=== PATIENT | male | born 1945 | race Caucasian/White ===

== ENCOUNTER 2016-11-02 14:02 | Inpatient (IN) | payer MEDICARE, OTHER ==
[~2016-11-02] VITALS: Ht 165.1 cm; Wt 99.8 kg
[~2016-11-02 14:02] MED LIST changes: +ACETAMINOPHEN 325 MG TAB PO PRN; +ACETAMINOPHEN 500 MG TAB PO ONE; +ALLOPURINOL 300 MG TAB PO SCH; -LIDOCAINE 1% (MDV) 20 ML INJ SC ONE; +NS + KCL 20 MEQ 1,000 ML IV SCH; -SOD CHLORIDE 0.9% 100 ML ONE
[2016-11-03] VITALS (7 sets, daily range): BP systolic 140–162; BP diastolic 78–90; PULSE 67–83; RESP 18; Ht 165.1 cm; Wt 99.8 kg
[2016-11-03] MEDS ORDERED: METHYLPREDNISOLONE 125 MG INJ IV PRN ×2 (15:00→16:00)
[2016-11-03] MEDS ORDERED: EPINEPHrine 1 MG INJ SC PRN ×2 (15:00→16:00)
[2016-11-03] MEDS ORDERED: DIPHENHYDRAMINE 50 MG CAP PO ONE (15:00)
[2016-11-03] MEDS ORDERED: traMADol 50 MG TAB PO PRN ×2 (15:00→19:00)
[2016-11-03] MEDS ORDERED: ACETAMINOPHEN 325 MG TAB PO PRN (15:00)
[2016-11-03] MEDS ORDERED: DIPHENHYDRAMINE 50 MG INJ IV PRN ×2 (15:00→16:00)
[2016-11-03] MEDS ORDERED: MEPERIDINE 25 MG INJ IV PRN ×2 (15:00→16:00)
[2016-11-03] MEDS ORDERED: ZOLPIDEM 5 MG TAB PO PRN ×2 (15:00→19:00)
[2016-11-03] MEDS ORDERED: SOD CHLORIDE 0.9% IV ONE (16:00)
[2016-11-03] MEDS ORDERED: ACETAMINOPHEN 500 MG TAB PO ONE (16:00)
[2016-11-03] MEDS ORDERED: ACETAMINOPHEN 500 MG TAB PO SCH (16:00)
[2016-11-03] MEDS ORDERED: RITUXIMAB IV ONE (16:00)
[2016-11-03] MEDS ORDERED: DIPHENHYDRAMINE 50 MG CAP PO SCH (16:00)
[2016-11-03] MEDS ORDERED: RITUXIMAB IV SCH ×3 (17:00→18:00)
[2016-11-03] MEDS ORDERED: SOD CHLORIDE 0.9% IV SCH ×5 (17:00→22:00)
--- NOTE | 2016-11-03 17:05 | QN ---
Documentation Comment Pt electively admitted for chemotherapy cycle #1. See Dr. Armas's note. Rituxan due to start this evening as soon as supplied by Pharmacy. JONATHON BOGGS MD Nov 03, 2016 17:05
[2016-11-03] MEDS: NS + KCL 20 MEQ 1,000 ML IV SCH (19:09)
[2016-11-03] MEDS ORDERED: BENDAMUSTINE HCL IV SCH ×2 (20:00→22:00)
[2016-11-03] MEDS ORDERED: DOXAZOSIN 2 MG TAB PO SCH (21:00)
[2016-11-03 22:07] LABS: ADD UMIC YES; URINE BILIRUBIN (Dip) NEGATIVE (NEGATIVE); URINE BLOOD (Dip) TRACE (NEGATIVE); URINE COLOR YELLOW (YELLOW); URINE GLUCOSE (Dip) NEGATIVE (NEGATIVE); URINE KETONES (Dip) NEGATIVE (NEGATIVE); URINE LEUKOCYTE ESTERASE (Dip) NEGATIVE (NEGATIVE); URINE NITRITE (Dip) NEGATIVE (NEGATIVE); URINE TOTAL PROTEIN (Dip) 2+ (NEGATIVE); URINE UROBILINOGEN (Dip) 1.0 E.U./dL (0.1-1.0)
[2016-11-03 22:22] LABS: MUCUS,URINE MANY; TRANSITIONAL EPI CELLS,URINE FEW; URINE RBCS 0-2 /HPF (0)
--- NOTE | 2016-11-03 23:51 | HP ---
DATE OF ADMISSION: 11/03/2016 CHIEF COMPLAINT: Non-Hodgkin lymphoma. HISTORY OF PRESENT ILLNESS: Mr. Ibarra is a 71-year-old male who has a long history of lower sophie k pain. This in the past has required surgery. In the past year, the pain has worsened and has bee n associated with some radicular symptoms in both lower extremities. The patient did recently have a repeat MRI that showed a space-occupying mass in the S1 area extendi ng into the sacral canal causing severe stenosis. There was a soft-tissue mass as well. 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 A PET scan was done at [facility] as well. This demonstrated hypermetabolic lesions corresponding with the findings on the MRI. There were also multiple enlarged hypermetabolic bilateral inguinal nodes and focal uptake within the spleen. There were additional skeletal foci of hypermetabolism in the left clavicle, right scapula and right proximal humerus. The patient is now being admitted to [facility] for chemotherapy due to the risk o f tumor lysis syndrome as well as the patient's increasing lower extremity weakness and concern abou t possible further spinal cord compression and neurologic symptoms. PAST HISTORY: Includes also atrial fibrillation. The patient has had bilateral lower extremity crystal p vein thrombosis as well as a pulmonary embolism. He as a result of the deep vein thrombosis has v enous insufficiency which is chronic in the lower extremities. He also has idiopathic scoliosis. PAST SURGICAL HISTORY: Surgeries in the past have included a lumbar laminectomy, a hemorrhoidectomy and biopsy of the lumbar spine lesion. MEDICATIONS PRIOR TO ADMISSION: Include: 1. Allopurinol 100 mg daily. 2. Cardura 2 mg daily. 3. Warfarin 2 mg daily. 4. Furosemide 40 mg daily. 5. Probiotic. ALLERGIES: THE PATIENT STATES HE IS ALLERGIC TO: 1. CIPRO. 2. CODEINE. 3. IODINE. SOCIAL HISTORY: The patient was born in [place], [place]. He may have been exposed to asbestos as a child but has had no other known exposures to industrial toxins or ionizing radiation. The pat ient has never smoked, does not use alcohol. 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 FAMILY HISTORY: Remarkable in that the patient's mother did have a history of DVT and pulmonary emb olism. She at 92 years of age. Father had prostate carcinoma, heart disease and at 88 ye ars of age. He has 1 sister who is alive and well at 70. She has, however, had 2 spontaneous abort ions. There is also a niece who is alive and well at 35 and also has had a spontaneous . REVIEW OF SYSTEMS: GENERAL: The patient has no complaints of fevers or chills. No anorexia, no weight loss or weight gain. SKIN: No rashes, no ecchymosis or petechiae. HEENT: No complaints of headaches, dizziness, diplopia. CARDIORESPIRATORY: No complaints of chest pain, orthopnea or PND. GASTROINTESTINAL: No nausea, vomiting, constipation, diarrhea or hematochezia. The patient does caldwell ve some complaint of pain in the anorectal area on bowel movements. MUSCULOSKELETAL: The patient does have neck and low back pain. He does have radicular symptoms rad iating to both lower extremities. PHYSICAL EXAMINATION: GENERAL: At this time reveals a well-developed, well-nourished male who is in no acute distress. VITAL SIGNS: Temperature 98.4 orally, pulse 74 per minute and irregular, respirations 18 per minute , blood pressure 140/80, pulse oximetry is 98% on room air. SKIN: No ecchymosis. No petechiae, rashes. HEENT: Normocephalic. No evidence of trauma. The pupils equal, round, react to light and accommod ation. Sclerae nonicteric. Oral mucosa is moist without lesions. Tongue is well papillated. Ther e is no gingival hyperplasia, no hypertrophy of Waldeyer ring, no mucosal telangiectasias. NECK: Held in a somewhat flexed position with decreased rotational movement and marked decrease in extension. There is no thyroid enlargement. No carotid bruits. CHEST: Clear to auscultation, percussion. No rhonchi, wheezes, rales or rubs. No pain on percussi on of the spine, sternum, clavicles or ribs. There is some scoliosis of the spine. BREASTS: No gynecomastia. HEART: Regular sinus rhythm. No S3, S4 or murmurs. No rubs. NODES: No palpable adenopathy in any lymph node-bearing area. ABDOMEN: Obese but soft. There are no masses or ascites. Bowel sounds are active. EXTREMITIES: Bilateral chronic lower extremity edema with stasis changes. There is pedal and preti bial edema. No palpable cords or Homans sign. NEUROLOGIC: No focal neurologic abnormalities. IMPRESSION: 1. Grade II follicular non-Hodgkin lymphoma. 2. Lower back pain with radicular symptoms related to #1. 3. History of atrial fibrillation. 4. History of deep venous thrombosis and pulmonary embolism. 5. Chronic lower extremity venous insufficiency. PLAN: The patient is to be admitted to [address] [place] [address]. A PICC line will be placed for the administration of chemotherapy. The patient is to receive rituximab 375 mg/meter sq uared on day 1 and bendamustine 90 mg/meter squared on days 1 and 2. This will be repeated every 28 days. The patient will be hydrated and given premedication in regard to a possible allergic reaction to ri tuximab. The patient is already on allopurinol. As noted, the patient does have a history of deep vein thrombosis and pulmonary embolism. The patie nt has been chronically on warfarin. The patient's mother did have deep vein thrombosis and pulmonary embolism. His sister has not had a ny thromboembolic episodes but has had 2 spontaneous abortions. The sister's daughter has also had at least 1 spontaneous . With this history, I do feel the patient should have some evaluation to rule out the possibility of an inherited "thrombophilia." Dictated By: STEVENSON ROCHA MD SR/NTS Conf#: [id number] DID#: [id number] CC: REY WALLACE MD;*EndCC*
[2016-11-04] VITALS (8 sets, daily range): BP systolic 130–145; BP diastolic 69–82; PULSE 62–74; RESP 18–20
[2016-11-04] MEDS: NS + KCL 20 MEQ 1,000 ML IV SCH ×2 (05:05→16:18)
[2016-11-04 05:34] LABS: INR 1.37; PROTIME 16.9 Sec (12.2-14.2); PT RATIO 1.3
[2016-11-04 05:36] LABS: EOSINOPHILS % 0.1 % (0.0-7.0); HEMATOCRIT 46.9 % (42.0-52.0); HEMOGLOBIN 15.9 g/dl (14.0-18.0); LYMPHOCYTES # 0.1 10^3/ul (0.8-2.9); LYMPHOCYTES % 1.1 % (15.0-51.0); MEAN CORPUSCULAR HGB CONC 33.9 g/dl (32.0-37.0); MEAN CORPUSCULAR VOLUME 88.4 fl (82.0-101.0); MEAN PLATELET VOLUME 10.5 fl (7.4-10.4); MONOCYTE # 0.2 10^3/ul (0.3-0.9); NEUTROPHIL # 9.9 10^3/ul (1.6-7.5); NEUTROPHILS % 96.8 % (39.0-77.0); PLATELET COUNT 114 10^3/UL (140-440); RED BLOOD COUNT 5.31 10^6/ul (4.70-6.10); RED CELL DISTRIBUTION WIDTH 14.5 % (11.5-14.5); UNCORRECTED WBC 10.2 10^3/ul (4.8-10.8); WHITE BLOOD COUNT 10.2 10^3/ul (4.8-10.8)
[2016-11-04 05:43] LABS: CONDITION 1; LH ANALYZER COMMENTS 1
[2016-11-04 05:49] LABS: ALBUMIN 3.5 g/dl (3.3-4.9)
[2016-11-04 05:50] LABS: POTASSIUM 4.1 mmol/L (3.5-5.1)
[2016-11-04 05:52] LABS: ALBUMIN/GLOBULIN RATIO 1.4; BILIRUBIN,INDIRECT 0.6 mg/dl (0-1.1); BILIRUBIN,TOTAL 0.6 mg/dl (0.2-1.3)
[2016-11-04 05:53] LABS: CALCIUM 8.7 mg/dl (8.4-10.2); URIC ACID 6.7 mg/dl (3.1-7.9)
[2016-11-04 06:55] LABS: ALBUMIN 3.5 g/dl (3.3-4.9)
[2016-11-04 06:58] LABS: BILIRUBIN,INDIRECT 0.5 mg/dl (0-1.1); BILIRUBIN,TOTAL 0.5 mg/dl (0.2-1.3); TOTAL PROTEIN 5.9 g/dl (6.1-8.1)
--- NOTE | 2016-11-04 08:50 | PN ---
DATE: 11/04/2016 TYPE OF CONSULTATION: Hematology/oncology progress note. SUBJECTIVE: The patient did receive both rituximab and bendamustine yesterday. He tolerated the th erapy well. He did have one episode of shaking chills, during which time the infusion was stopped. It was resumed approximately 1 hour later, and the patient continued infusion. Also received daquan mustine. The patient states he is feeling well now. No new complaints. OBJECTIVE VITAL SIGNS: Temperature 98.4, pulse 70 per minute and regular, respirations 18, blood pressure 145 /82, pulse oximetry 97% on room air. SKIN: No ecchymosis, no petechiae or rashes. HEENT: No mucosal lesions. No scleral icterus. Normocephalic. Pupils equal, round, react to ligh t and accommodation. NECK: Neck is held in a somewhat flexed position. The patient is unable to extend her neck or rota te without pain. CHEST: Clear to auscultation and percussion. No rhonchi, wheezes, rales or rubs. ABDOMEN: Soft. No masses, no ascites. Bowel sounds are active. EXTREMITIES: No clubbing or cyanosis. There are bilateral venous stasis changes in the feet and pr etibial area. No ulcerations. NEUROLOGIC: Normal. LABORATORY DATA: White count 10,200 with an absolute neutrophil count of 9900 and absolute lymphocy te count of only 100, hemoglobin 15.9, hematocrit 46.9, and platelet count 114,000. The sodium is 1 43, potassium 4.1, creatinine 1. BUN 18, uric acid 6.7. IMPRESSION 1. Follicular non-Hodgkin lymphoma. 2. Low back pain with radicular symptoms related to follicular non-Hodgkin's lymphoma. 3. History of atrial fibrillation. 4. History of deep vein thrombosis and pulmonary embolism 5. Chronic lower extremity edema due to venous insufficiency. PLAN: 1. The patient will receive day 2 bendamustine today. Following completion of that, he will be dis charged. 2. The patient will also receive Coumadin 5 mg p.o. this p.m. The patient states he is unable to t olerate generic warfarin and therefore will be given brand name Coumadin. 3. Patient has a history of deep vein thrombosis and pulmonary embolism. The patient's mother also had deep vein thrombosis and pulmonary embolism. The patient's sister has had 2 spontaneous aborti ons, and a niece has had spontaneous . I am concerned that the patient has a hereditary "th rombophilia" We will at least obtain a factor V Leiden mutation as well as a prothrombin gene mutat ion while patient is in the hospital. Dictated By: STEVENSON ROCHA MD, SR/NTS Conf#: [id number] DID#: [id number]
[2016-11-04] MEDS ORDERED: DOCUSATE SODIUM 100 MG CAP PO SCH (09:00)
[2016-11-04] MEDS ORDERED: ALLOPURINOL 300 MG TAB PO SCH (09:00)
--- NOTE | 2016-11-04 10:15 | DS ---
DATE OF ADMISSION: 11/03/2016 DATE OF DISCHARGE: 11/04/2016 DIAGNOSIS ON ADMISSION: Follicular non-Hodgkin's lymphoma. DIAGNOSIS UPON DISCHARGE: Follicular non-Hodgkin's lymphoma. HOSPITAL COURSE: The patient is a 71-year-old male who was admitted to [facility] in order to receive his first chemotherapy with rituximab and bendamustine. The patient has a rece nt diagnosis of follicular lymphoma involving the sacral area of the spine with a soft tissue mass e ncroaching on nerve roots causing radicular pain in the lower extremities. The patient was admitted to [facility] at [facility] on 11/03/2016. The patient steven hudson had a PICC line inserted on the previous day. The patient did receive rituximab a total of 780 mg IV infusion. This was given on day 1. The patrice ent also received bendamustine 187 mg on day 1 and repeated on day 2. The patient tolerated chemotherapy well. He did have a shaking chill associated with rituximab, but this was treated by interrupting infusion with resolution of symptoms. Once the infusion was resum ed, the patient had no further symptoms. The patient was discharged from the hospital on 11/04/2016, to be followed up as an outpatient. The patient will require home health followup for care of the PICC line. DISCHARGE MEDICATIONS: Include: 1. Doxazosin 2 mg daily. 2. Allopurinol 300 mg daily. 3. Clonidine 0.1 mg q.4h. p.r.n. systolic pressure over 160 and diastolic pressure over 90. CONDITION ON DISCHARGE: Good. ACTIVITY LEVEL DISCHARGE: As tolerated. DIET ON DISCHARGE: As tolerated. PLAN: The patient will be seen again in the office in 1 week. As noted, will also have home health followup for care of PICC line. It is anticipated the patient will receive rituximab and bendamustine as an outpatient again in 21 d ays. It is anticipated the patient will receive a total of 6 cycles. Dictated By: STEVENSON ROCHA MD SR/NTS Conf#: [id number] DID#: [id number] CC: REY WALLACE MD;*EndCC*
[2016-11-04] MEDS ORDERED: SOD CHLORIDE 0.9% IV SCH (17:00)
[2016-11-04] MEDS ORDERED: BENDAMUSTINE HCL IV SCH (17:00)
[2016-11-04] MEDS ORDERED: WARFARIN 5 MG TAB PO SCH (17:00)
[2016-11-04] MEDS ORDERED: DOXAZOSIN 2 MG TAB PO SCH (21:00)
== END 2016-11-04 20:10 | disposition home or self-care (01) | DRG 847 ==
LOC: MS1 11-03 16:01
PROVIDERS: ADMIT Internal Medicine Hematology & Oncology; ATTEND Internal Medicine Hematology & Oncology
DX: Z51.11 Encounter for antineoplastic chemotherapy (principal); C82.10 Follicular lymphoma grade II, unspecified site; I48.91 Unspecified atrial fibrillation; Z86.718 Personal history of other venous thrombosis and embolism; Z86.711 Personal history of pulmonary embolism; I87.2 Venous insufficiency (chronic) (peripheral); M54.10 Radiculopathy, site unspecified
CPT/HCPCS: 80053; 80076; 81001; 81003; 81240; 83735; 83890; 84560; 85025; 85610; 85730; J9310; J1200; J2175; J2930; J3480; J9033

== ENCOUNTER → 2016-11-02 | Outpatient (CLI) | payer MEDICARE, OTHER ==
[~2016-11-02] MED LIST: COUMADIN; LASIX; LIDOCAINE 1% (MDV) 20 ML INJ SC ONE; SOD CHLORIDE 0.9% 100 ML ONE
--- NOTE | 2016-11-02 11:50 | RADRPT ---
PROCEDURE: XR Chest. CLINICAL INDICATION: PICC line placement TECHNIQUE: Single frontal view of the chest was obtained COMPARISON: Same day FINDINGS: There is a new left-sided PICC line in place with its tip overlying the cavoatrial junction. The heart, mediastinum, and lungs are unchanged. There is a left upper lobe calcified granuloma. Th e heart is normal in size. RPTAT: AA IMPRESSION: New PICC line in appropriate position. .Ortega Erickson MD, MD Date Time Electronically viewed and signed by .Ortega Erickson MD, MD on 11/02/2016 11:50 .S/
--- NOTE | 2016-11-02 11:54 | RADRPT ---
PROCEDURE: US guidance for PICC line CLINICAL INDICATION: PICC line placement TECHNIQUE: Multiple real-time images were acquired of the patient's arm utilizing a high resolutio n transducer. This was performed by the PICC line nurse for venous access. COMPARISON: None FINDINGS: Ultrasound guidance for PICC line placement. IMPRESSION: Ultrasound guidance for PICC line placement. RPTAT: AA .Ortega Erickson MD, MD Date Time Electronically viewed and signed by .Ortega Erickson MD, on 11/02/2016 11:53 .S/
== END | disposition home or self-care (01) ==
LOC: RAD 10:20
PROVIDERS: ATTEND Internal Medicine Hematology & Oncology
DX: C82.90 Follicular lymphoma, unspecified, unspecified site (principal)
CPT/HCPCS: 36569; 71010; 76937

== ENCOUNTER → 2016-11-12 | Outpatient (CLI) | payer MEDICARE, OTHER ==
[~2016-11-12] MED LIST changes: -ACETAMINOPHEN 325 MG TAB PO PRN; -ACETAMINOPHEN 500 MG TAB PO ONE; -ALLOPURINOL 300 MG TAB PO SCH; -NS + KCL 20 MEQ 1,000 ML IV SCH
--- NOTE | 2016-11-12 14:52 | RADRPT ---
PROCEDURE: US left upper extremity veins. CLINICAL INDICATION: Left arm pain and swelling. History of left arm PICC line. TECHNIQUE: Multiple longitudinal and transverse images of the left upper extremity venous tree was obtained with washington scale, pulsed Doppler, and color Doppler imaging. COMPARISON: None available FINDINGS: The left internal jugular is normal with no thrombus or occlusion. The vein demonstrates normal com pressibility. There is thrombosis of the left subclavian vein, left axillary vein, left brachial vein, and left ba silic vein with lack of flow and lack of compressibility. The left cephalic vein is patent with norm al flow and compressibility. IMPRESSION: 1. Normal left internal jugular vein and left cephalic vein. 2. Thrombosis of the left subclavian, axillary, brachial, and basilic veins. RPTAT: QQ .Wilton Lake MD, Date Time Electronically viewed and signed by .Wilton Lake MD, MD on 11/12/2016 14:52 .R/
== END | disposition home or self-care (01) ==
LOC: VAS 12:57
PROVIDERS: ATTEND Internal Medicine Hematology & Oncology
DX: M79.622 Pain in left upper arm (principal); M79.89 Other specified soft tissue disorders; I82.B12 Acute embolism and thrombosis of left subclavian vein
CPT/HCPCS: 93971

== ENCOUNTER 2017-01-25 18:57 | Inpatient (IN) | payer MEDICARE, OTHER ==
[~2017-01-25] VITALS: Ht 167.6 cm; Wt 106.6 kg
[2017-01-25] MEDS ORDERED: IBUPROFEN 600 MG TAB PO ONE (20:30)
[2017-01-25] MEDS ORDERED: LIDOCAINE 1% (MPF) 5 ML VIAL SC ONE (20:30)
[2017-01-25 20:33] VITALS: TEMP 98.4
--- NOTE | 2017-01-25 20:34 | ERA ---
ER Documentation Chief Complaint Date/Time DATE: 01/25/17 TIME: 20:31 Chief Complaint Pt with LLE cellulitis referred by [facility] for IV antibiotics. HPI 71-year-old man complains of increasing left lower extremity redness and pain consistent with cellulitis. Patient has been managed by [facility] but because of recent increasing symptoms they referred him here for IV antibiotics. Patient also has a recent history of follicular non-Hodgkin's lymphoma. Patient denies recent fevers or chills, no vomiting or diarrhea, no headache or blurry vision. ROS All systems reviewed and are negative except as per history of present illness. Medications Home Meds Reported Medications Cholecalciferol* (Vitamin D3*) 1,000 Unit Tablet, 1000 UNIT PO DAILY, TAB 01/25/17 Docusate Sodium* (Colace*) 100 Mg Capsule, 100 MG PO DAILY, #30 CAP 01/25/17 Doxazosin Mesylate* (Doxazosin Mesylate*) 4 Mg Tablet, 2 MG PO BID WITH MEALS, TAB 01/25/17 Alprazolam* (Alprazolam*) 0.5 Mg Tablet, 0.5 MG PO Q8H Y for ANXIETY, TAB 01/25/17 Allopurinol* (Allopurinol*) 300 Mg Tablet, 300 MG PO DAILY, TAB 01/25/17 Potassium Chloride* (Klor-Con*) 8 Meq Tablet.sa, 8 MEQ PO BID, TAB 01/25/17 Furosemide* (Furosemide*) 40 Mg Tablet, 40 MG PO EVERY OTHER DAY, TAB PATIENT IS TAKING THIS EVERY OTHER DAY 01/25/17 Warfarin Sodium* (Coumadin*) 5 Mg Tablet, 5 MG PO, TAB PATIENT SAID HE IS TAKING 5MG EVERY SUN-WED-WED; WED - 2.5MG 01/25/17 Discontinued Reported Medications [Coumadin] No Conflict Check 02/11/14 [Lasix] No Conflict Check 02/11/14 Allergies Allergies: Coded Allergies: iodine (Unverified Allergy, Severe, VOMIT AND TURNS GREEN, 01/25/17) ciprofloxacin (Unverified Adverse Reaction, Severe, RUINED LEG LIGAMENTS, 01/25/17) PMhx/Soc Paroxysmal atrial fibrillation, bilateral stasis dermatitis of the lower extremities, previous pulmonary embolism in both upper and lower extremity DVTs , non-Hodgkin's follicular lymphoma, morbid obesity History of Surgery: Yes (Back Sx L4-5; L partial knee Sx; Hemorrhoi Sx;) Anesthesia Reaction: No Hx Neurological Disorder: No Hx Respiratory Disorders: No Hx Cardiac Disorders: Yes (Afib; h/o PE; DVT;) Hx Psychiatric Problems: No Hx Miscellaneous Medical Probl: No Hx Alcohol Use: No Hx Substance Use: No Hx Tobacco Use: No FmHx Family History: diabetes Physical Exam Vitals Vital Signs Date Time Temp Pulse Resp B/P Pulse Ox O2 Delivery O2 Flow Rate FiO2 01/25/17 20:33 98.4 01/25/17 19:01 99.8 99 18 167/90 97 Physical Exam GENERAL: Well-developed, well-nourished, afebrile HEENT: Moist mucous membranes, pink conjunctiva, no cervical spine tenderness or step-off deformities, no goiter, no jaundice or icterus, extraocular movements intact without pain. No submandibular induration, and no pharyngeal erythema NEURO: Alert and oriented 3, cranial nerves II through XII intact bilaterally, pupils equal round reactive to light, no focal deficits or facial asymmetry, sensation intact distally Strength 5/5 in upper and lower extremities bilaterally CARDIAC: Regular rate and rhythm, no murmurs rubs or gallops LUNGS: Clear bilaterally no wheezing crackles or stridor ABDOMEN: Soft nontender, no guarding, no rigidity, no rebound, no psoas sign no obturator sign. Normoactive bowel sounds SKIN: Bilateral stasis dermatitis of the lower extremities with 3+ pitting edema and circumferential erythema over the left lower leg concerning for cellulitis. No skin ulcerations or purulent discharge EXTREMITIES: No clubbing cyanosis, 3+ pitting edema in the lower extremities bilaterally, calves are bilaterally symmetrical, no Homans sign, no popliteal cord sign. Distal pulses equal and bilateral PSYCH: Normal affect without agitation or irritability Result Diagram: 01/25/17202401/25/172024 Results 24 hrs Laboratory Tests Test 01/25/17 20:15 01/25/17 20:25 Urine Color LT. YELLOW Urine Clarity CLEAR Urine pH 6.0 Urine Specific [place] 1.020 Urine Ketones NEGATIVE Urine Nitrite NEGATIVE Urine Bilirubin NEGATIVE Urine Urobilinogen 0.2 E.U./dL Urine Leukocyte Esterase NEGATIVE Urine Microscopic RBC 0-2/HPF Urine Microscopic WBC NONE SEEN/HPF Urine Hemoglobin TRACE Urine Glucose NEGATIVE% Urine Total Protein 1+ White Blood Count 10.410^3/ul Red Blood Count 4.6410^6/ul Hemoglobin 14.4g/dl Hematocrit 42.3% Mean Corpuscular Volume 91.2fl Mean Corpuscular Hemoglobin 31.0pg Mean Corpuscular Hemoglobin Concent 34.0g/dl Red Cell Distribution Width 15.1% Platelet Count 77614^3/UL Mean Platelet Volume 11.6fl Neutrophils % 86.5% Lymphocytes % 1.1% Monocytes % 11.0% Eosinophils % 0.7% Basophils % 0.2% Nucleated Red Blood Cells % 0.0/100WBC Neutrophils # 9.010^3/ul Lymphocytes # 0.110^3/ul Monocytes # 1.110^3/ul Eosinophils # 0.110^3/ul Basophils # 0.010^3/ul Nucleated Red Blood Cells # 0.010^3/ul Prothrombin Time 27.7Sec Prothrombin Time Ratio 2.2 INR International Normalized Ratio 2.54 Sodium Level 137mmol/L Potassium Level 4.2mmol/L Chloride Level 104mmol/L Carbon Dioxide Level 26mmol/L Anion Gap 11 Blood Urea Nitrogen 14mg/dl Creatinine 0.93mg/dl Glucose Level 108mg/dl Calcium Level 9.1mg/dl Total Bilirubin 0.7mg/dl Direct Bilirubin 0.00mg/dl Indirect Bilirubin 0.7mg/dl Aspartate Amino Transf (AST/SGOT) 26IU/L Alanine Aminotransferase (ALT/SGPT) 40IU/L Alkaline Phosphatase 79IU/L Troponin I < 0.012ng/ml Total Protein 6.9g/dl Albumin 4.0g/dl Globulin 2.90g/dl Albumin/Globulin Ratio 1.37 Lipase 21U/L Current Medications Medications (Trade) Dose Ordered Sig/Linnea Route PRN Reason Start Time Stop Time Status Last Admin Dose Admin Lidocaine (Xylocaine 1% (Mpf)) 5 ml ONCE ONCE SC 01/25/17 20:30 01/25/17 20:31 DC Ibuprofen 600 mg 600 mg ONCE ONCE PO 01/25/17 20:30 01/25/17 20:31 DC Ceftriaxone Sodium 50 ml @ 100 mls/hr ONCE ONCE IVPB 01/25/17 21:00 01/25/17 21:29 DC 01/25/17 21:00 Vancomycin HCl 250 ml @ 125 mls/hr ONCE IVPB 01/25/17 21:00 01/25/17 22:59 01/25/17 21:42 Sodium Chloride (NS) 1,000 ml @ 1,000 mls/hr Q1H ONCE IV 01/25/17 21:00 01/25/17 21:59 DC 01/25/17 21:01 Procedures/MDM IV line was established patient was placed on playground monitor rhythm strip revealed a sinus rhythm at about 90 bpm with upright P and T waves. Patient was afebrile. EKG performed, read by me: 90 bpm, normal sinus rhythm, normal axis, no acute ST segment changes, narrow QRS complex, with good R-wave progression in precordial leads. One AP view of the chest performed, read by me reveals no acute infiltrates, normal mediastinum, sharp costophrenic and cardiac borders, no air under the diaphragm. Otherwise unremarkable chest x-ray. I administered 1 L normal saline intravenously, ibuprofen 600 mg p.o., ceftriaxone 1 g IV, and vancomycin 1 g IV. CBC and electrolytes were normal, liver function tests were normal, troponin was negative. Urinalysis was unremarkable. Consultation request for vascular surgeon was placed. Patient will require large-bore central venous catheter for continued IV antibiotics and possible chemotherapy. I spoke to Dr. Abreu, who will be admitting the patient to [facility]. Departure Diagnosis: Primary Impression: Venous stasis dermatitis of both lower extremities Additional Impressions: Left leg cellulitis Non Hodgkin's lymphoma Qualified Code: C82.98 - Follicular lymphoma of lymph nodes of multiple regions, unspecified follicular lymphoma type Condition: EBONY Torres MD January 25, 2017 20:34
[2017-01-25 20:37] LABS: ABNORMAL IP MESSAGE 1; EOSINOPHILS # 0.1 10^3/ul (0.0-0.5); EOSINOPHILS % 0.7 % (0.0-7.0); HEMOGLOBIN 14.4 g/dl (14.0-18.0)
[2017-01-25 20:43] LABS: BASOPHILS % 0.2 % (0.0-2.0); HEMATOCRIT 42.3 % (42.0-52.0); LYMPHOCYTES # 0.1 10^3/ul (0.8-2.9); LYMPHOCYTES % 1.1 % (15.0-51.0); MEAN CORPUSCULAR VOLUME 91.2 fl (82.0-101.0); MEAN PLATELET VOLUME 11.6 fl (7.4-10.4); MONOCYTE # 1.1 10^3/ul (0.3-0.9); NEUTROPHILS % 86.5 % (39.0-77.0); PLATELET COUNT 119 10^3/UL (140-415); RED BLOOD COUNT 4.64 10^6/ul (4.70-6.10); RED CELL DISTRIBUTION WIDTH 15.1 % (11.5-14.5); WHITE BLOOD COUNT 10.4 10^3/ul (4.8-10.8)
[2017-01-25 20:48] LABS: ADD UMIC YES; URINE BILIRUBIN (Dip) NEGATIVE (NEGATIVE); URINE BLOOD (Dip) TRACE (NEGATIVE); URINE COLOR LT. YELLOW (YELLOW); URINE GLUCOSE (Dip) NEGATIVE (NEGATIVE); URINE KETONES (Dip) NEGATIVE (NEGATIVE); URINE LEUKOCYTE ESTERASE (Dip) NEGATIVE (NEGATIVE); URINE NITRITE (Dip) NEGATIVE (NEGATIVE); URINE TOTAL PROTEIN (Dip) 1+ (NEGATIVE); URINE UROBILINOGEN (Dip) 0.2 E.U./dL (0.1-1.0)
[2017-01-25 20:52] LABS: ADD SCAN DIFF YES
[2017-01-25 20:55] LABS: INR 2.54; PROTIME 27.7 Sec (12.2-14.2); PT RATIO 2.2
[2017-01-25] MEDS ORDERED: WARF5TAB72 PO (20:57)
[2017-01-25] MEDS ORDERED: FURO40TA4 PO (20:57)
--- NOTE | 2017-01-25 20:57 | RADRPT ---
PROCEDURE: XR Chest. CLINICAL INDICATION: Abdominal pain. TECHNIQUE: Single frontal view of the chest. COMPARISON: 11/02/2016. FINDINGS: Mild cardiomegaly. Pulmonary vascular ingestion and mild bibasilar patchy atelectasis versus airspa ce disease. No signs of pleural fluid or pneumothorax are seen. The osseous structures and soft tiss ues are unremarkable. IMPRESSION: Mild failure. RPTAT: [facility] Physician Hari Date Time Electronically viewed and signed by Red Purcell Physician on 01/25/2017 20:57 RS/
[2017-01-25] MEDS ORDERED: CEFTRIAXONE 1 GM/50 ML (PMX) 50 ML IVPB ONE (21:00)
[2017-01-25] MEDS ORDERED: VANCOMYCIN 1 GM (PMX) 250 ML IVPB SCH (21:00)
[2017-01-25] MEDS ORDERED: SOD CHLORIDE 0.9% 1,000 ML IV ONE (21:00)
[2017-01-25 21:07] LABS: ALANINE AMINOTRANSFERASE 40 IU/L (13-69); ALBUMIN/GLOBULIN RATIO 1.37; ALKALINE PHOSPHATASE 79 IU/L (42-121); ANION GAP 11 (8-16); ASPARTATE AMINO TRANSFERASE 26 IU/L (15-46); BILIRUBIN,INDIRECT 0.7 mg/dl (0-1.1); BILIRUBIN,TOTAL 0.7 mg/dl (0.2-1.3); BLOOD UREA NITROGEN 14 mg/dl (7-20); CALCIUM 9.1 mg/dl (8.4-10.2); CARBON DIOXIDE 26 mmol/L (21-31); CHLORIDE 104 mmol/L (97-110); CREATININE 0.93 mg/dl (0.61-1.24); GLUCOSE 108 mg/dl (70-220); POTASSIUM 4.2 mmol/L (3.5-5.1); SODIUM 137 mmol/L (135-144); TOTAL PROTEIN 6.9 g/dl (6.1-8.1)
[2017-01-25 21:12] LABS: URINE RBCS 0-2 /HPF (0)
[2017-01-25 21:20] LABS: TROPONIN-I < 0.012 ng/ml (0.00-0.12)
[2017-01-25] MEDS ORDERED: DOXA4TAB3 PO (21:48)
[2017-01-25] MEDS ORDERED: POTA8TAB2 PO (21:48)
[2017-01-25] MEDS ORDERED: ALPR0.5T6 PO (21:48)
[2017-01-25] MEDS ORDERED: ALLO300T2 PO (21:48)
[2017-01-25] MEDS ORDERED: DOCU-144 PO (21:49)
[2017-01-25] MEDS ORDERED: CHOL100062 PO (21:49)
[2017-01-25 23:13] VITALS: BP 182/98; RESP 18
[2017-01-25 23:55] VITALS: Ht 167.6 cm; Wt 106.6 kg
[2017-01-26] VITALS: BP 154/84
[2017-01-26] MEDS ORDERED: DOCUSATE SODIUM 100 MG CAP PO PRN
[2017-01-26] MEDS ORDERED: ALPRAZOLAM 0.5 MG TAB PO PRN
[2017-01-26] MEDS ORDERED: VANCOMYCIN IV PER PHARMACY XX SCH
[2017-01-26] MEDS ORDERED: ONDANSETRON 4 MG TAB PO PRN
[2017-01-26] MEDS ORDERED: NACL 0.9% 3 ML SYG IV SCH
[2017-01-26] MEDS ORDERED: ACETAMINOPHEN 325 MG TAB PO PRN
[2017-01-26] MEDS ORDERED: ZOLPIDEM 5 MG TAB PO PRN
[2017-01-26] MEDS: VANCOMYCIN 1 GM in NS 250 ML IVPB SCH ×2 (01:00→12:00)
[2017-01-26] MEDS: FUROSEMIDE 40 MG TAB PO SCH (06:00)
[2017-01-26 06:12] LABS: ABNORMAL IP MESSAGE 1; ADD SCAN DIFF NO; BASOPHILS % 0.1 % (0.0-2.0); EOSINOPHILS # 0.2 10^3/ul (0.0-0.5); EOSINOPHILS % 2.1 % (0.0-7.0); HEMATOCRIT 39.9 % (42.0-52.0); HEMOGLOBIN 13.6 g/dl (14.0-18.0); LYMPHOCYTES # 0.1 10^3/ul (0.8-2.9); MEAN CORPUSCULAR HEMOGLOBIN 31.3 pg (29.0-33.0); MEAN CORPUSCULAR HGB CONC 34.1 g/dl (32.0-37.0); MEAN CORPUSCULAR VOLUME 91.7 fl (82.0-101.0); MEAN PLATELET VOLUME 11.3 fl (7.4-10.4); MONOCYTE # 1.2 10^3/ul (0.3-0.9); MONOCYTES % 15.1 % (0.0-11.0); NEUTROPHIL # 6.3 10^3/ul (1.6-7.5); NEUTROPHILS % 81.2 % (39.0-77.0); PLATELET COUNT 117 10^3/UL (140-415); RED BLOOD COUNT 4.35 10^6/ul (4.70-6.10); WHITE BLOOD COUNT 7.7 10^3/ul (4.8-10.8)
[2017-01-26 06:20] LABS: ALBUMIN 3.3 g/dl (3.3-4.9)
[2017-01-26 06:21] LABS: POTASSIUM 3.7 mmol/L (3.5-5.1)
[2017-01-26] MEDS: HEPARIN 5,000 UNIT/0.5 ML VIAL SC SCH ×3 (06:21→21:19)
[2017-01-26 06:23] LABS: BILIRUBIN,INDIRECT 0.8 mg/dl (0-1.1); BILIRUBIN,TOTAL 0.8 mg/dl (0.2-1.3); CREATININE 0.92 mg/dl (0.61-1.24)
[2017-01-26 06:24] LABS: ALBUMIN/GLOBULIN RATIO 1.22; CALCIUM 8.3 mg/dl (8.4-10.2)
[2017-01-26 07:30] VITALS: BP 171/96; RESP 19
[2017-01-26] MEDS ORDERED: ACCU-CHEK XX SCH (07:30)
[2017-01-26] MEDS: POTASSIUM CHLORIDE (SR) 8 MEQ CAP PO SCH ×2 (09:12→21:18)
[2017-01-26] MEDS: FAMOTIDINE 20 MG TAB PO SCH ×2 (09:12→21:18)
[2017-01-26] MEDS: ALLOPURINOL 300 MG TAB PO SCH (09:12)
[2017-01-26] MEDS: CHOLECALCIFEROL 1,000 UNIT TAB PO SCH (09:12)
[2017-01-26] MEDS ORDERED: DOXAZOSIN 2 MG TAB PO SCH (11:00)
--- NOTE | 2017-01-26 12:11 | RADRPT ---
PROCEDURE: US DVT. CLINICAL INDICATION: History of left arm blood clot. TECHNIQUE: Multiple longitudinal and transverse images of the the left upper extremity veins were obtained with washington scale and color Doppler imaging. 2D grayscale measurements with compression, col or Doppler flow, and augmentation was performed. COMPARISON: Previous study from 11/12/2016 FINDINGS: The left jugular vein, subclavian vein, axillary vein, and brachial veins are normally compressible throughout. Color flow demonstrates normal filling of the vessel. Normal waveforms are visualized and there is normal response to augmentation. The left cephalic, radial and ulnar veins are also vi sualized and appear unremarkable. IMPRESSION: 1. No evidence of a deep vein thrombosis involving the left upper extremity. RPTAT: [facility] Physician Yazan Date Time Electronically viewed and signed by Physician Yazan on 01/26/2017 12:11 /
[2017-01-26 13:33] VITALS: BP 146/83; PULSE 84
[2017-01-26 20:08] VITALS: BP 153/85; RESP 18
--- NOTE | 2017-01-26 20:45 | CONS ---
DATE OF ADMISSION: 01/25/2017 DATE OF CONSULTATION: 01/26/2017 REQUESTING PHYSICIAN: Dr. Ceferino Abreu and Dr. Mehdi Sierra REASON FOR CONSULTATION: Non-Hodgkin lymphoma. Dear Dr. Abreu and Dr Sierra: HISTORY OF PRESENT ILLNESS: Thank you very much for asking me to see this very interesting and plea oracio gentleman in hematologic and oncologic consultation. As you know, I am familiar with Mr. Lawanda nunez, who I initially saw in early 10/2016. The patient had recently been found to have a space occ upying mass in the S1 area extending into the sacral canal causing stenosis. There was a soft tissu e mass as well. 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 A PET CT scan was done at [facility] as well, which demonstrated hypermetabolic l esions corresponding to these findings on the MRI. There are also multiple enlarged hypermetabolic inguinal nodes and focal uptake in the spleen. There were also additional foci of hypermetabolism i n the left clavicle, right scapula, and right proximal humerus. The patient was started on chemotherapy with a combination of rituximab and bendamustine. The patie nt received his first course of chemotherapy on 11/03/2016. The patient has now received a total of 4 cycles of chemotherapy. His next was scheduled to be received on 02/02/2017 and 02/03/2017. It should be noted the patient did have a repeat PET CT scan after what would be the third cycle of aroldo motherapy and there seemed to have been a complete remission with no evidence of disease. The patient is now admitted to [facility] with increasing swelling and pain in the left lower extremity. This was felt to be consistent with cellulitis. The patient has recently caldwell d been followed in [facility] where he has been followed in the past because o f ulcers and similar infections. The patient is now admitted to the hospital in order to receive IV antibiotics. It should be noted that the patient has had problems in the past with recurrent deep vein thromboses . The patient has had bilateral lower extremity deep vein thromboses as well as pulmonary embolism. As a result of the deep vein thrombosis, the patient has venous insufficiency, which is chronic in lower extremities. At the time of the patient's first chemotherapy on 11/03/2016, the patient did have a PICC line plac ed in the left upper extremity. After 4 or 5 days, this line had to be removed and the patient deve loped a thrombosis in the left subclavian, axillary, brachial, and basilic veins. The internal jugu lar and left cephalic veins were normal. As noted, the PICC line was removed immediately upon the d iscovery of the deep vein thrombosis. The patient on admission to the hospital today did have a repeat of the upper extremity venous study performed. This showed no evidence of the previously noted deep vein thrombosis involving the left upper extremity. A chest x-ray was done, which showed mild cardiomegaly. There was no evidence of pulmonary parenchymal lesions or hilar mediastinal adenopathy. At this time, the patient's white count of 7700 with 81% neutrophils, 1% lymphocytes, and 15% monocy el, hemoglobin 13.6, hematocrit 39.9, and RDW 15, platelet count 117,000. Protime on admission was 27.7 seconds, INR of 2.54. Comprehensive metabolic panel is normal except for a calcium of 8.3. T otal protein is 6 with albumin of 3.3. Total bilirubin 0.8, direct bilirubin 0. Creatinine 0.92, B UN 14. Uric acid 7.4. PAST MEDICAL HISTORY: Does include a history of atrial fibrillation. The patient also has had the previous bilateral lower extremity deep vein thrombosis as well as pulmonary emboli. As noted, he d oes have venous insufficiency with chronic in lower extremities. The patient has had idiopathic sco liosis and chronic lower back pain. PAST SURGICAL HISTORY: Included a previous lumbar laminectomy, a hemorrhoidectomy, and biopsy of th e lumbar spine as noted. MEDICATIONS: At the time of admission included: 1. Vitamin D 1000 units daily. 2. Doxazosin 2 mg p.o. b.i.d. 3. Alprazolam 0.5 mg every 8 hours p.r.n. 4. Allopurinol 300 mg daily. 5. Furosemide 40 mg every other day. 6. Potassium chloride 8 mEq twice a day. 7. Warfarin 5 mg every Wednesday, Wednesday, Wednesday and 2.5 mg on other days. ALLERGIES: THE PATIENT IS STATED TO BE ALLERGIC TO: 1. IODINE. 2. CIPROFLOXACIN. SOCIAL HISTORY: The patient was born in [place], [place]. He may have been exposed to asbestos as a child, but has no known exposures to other industrial toxins or ionizing radiation until he did receive the chemotherapy mentioned above. He has never smoked, does not use alcohol. 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 He is unmarried. FAMILY HISTORY: The patient's mother did have a history of deep vein thrombosis and pulmonary embol ism. She at 92 years of age. Father had prostatic carcinoma, heart disease, and at 88 ye ars of age. He has 1 sister who is alive and well at 70 years of age. The patient's sister has had 2 spontaneous abortions. There is also a niece who is 35 years old and had spontaneous abortions. I have performed evaluation on this patient to rule out the possibility of a "thrombophilia." This evaluation has been negative. PHYSICAL EXAMINATION: GENERAL: At this time reveals a well-developed, well-nourished male who is in no acute distress, bu t is experiencing discomfort in the left lower extremity. VITAL SIGNS: Temperature 99, pulse 86 per minute and regular, respirations 18, blood pressure is 17 1/96, and pulse oximetry is 96% on room air. SKIN: No ecchymoses. No petechiae or rashes. There are stasis changes in both pretibial areas. T here is erythema and warmth to the touch in the left pedal and pretibial area. HEENT: Normocephalic. No evidence of trauma. Pupils equal, round, react to light and accommodatio n. Sclerae nonicteric. Oral mucosa is moist without lesions. Tongue is well papillated. No gingi danilo hyperplasia. No hypertrophy of Waldeyer ring. NECK: Held in a somewhat flexed position with decreased rotational movement and decreased extension . There is no thyroid enlargement. No carotid bruits. CHEST: Clear to auscultation and percussion. No rhonchi, wheezes, rales, or rubs. There is no mirela n on percussion of the spine, sternum, clavicles, or ribs. There is scoliosis. BREASTS: No gynecomastia. HEART: Regular sinus rhythm. No S3, S4, or murmurs. No rubs. NODES: No palpable lymphadenopathy in lymph node bearing area. ABDOMEN: Obese but soft. There are no masses or ascites. Bowel sounds are active. No hernia defe cts. EXTREMITIES: Bilateral chronic lower extremity edema with stasis changes. There is significant binh ma on the left as compared to the right. There is warmth to the touch on the left. There are no pa lpable cords or Homans sign. NEUROLOGIC: No focal neurologic abnormalities. DISCUSSION: This patient does have a diagnosis of a grade II/III follicular non-Hodgkin lymphoma. He has received 4 cycles of a combination of rituximab and bendamustine. It is anticipated he will receive a total of [address] scan after 3 cycles of the above therapies demonstrated complete resolution of disease . At the same time, the patient had symptomatic improvement. The patient was to receive cycle #5 of chemotherapy next week. He is now admitted, however, with si gnificant cellulitis involving the left lower extremity. The patient's past history and recent course has been complicated by difficulty with venous access. The patient did develop a deep vein thrombosis of the left upper extremity after having had a PICC line in place. This is in spite of the fact that the patient was on anticoagulation at that time. There has been difficulty administering the patient's antibiotic therapy with vancomycin thus far du ring this admission. I have discussed the situation with the patient and Dr. Abreu. I feel the bes t option for this patient will be for the placement of a Port-A-Cath. This will allow completion of the future 2 anticipated cycles of therapy, the "maintenance" therapy of rituximab given every 2 mo nths for a total of 2 years. There is, of course, concern that the patient may develop for thromboembolic phenomenon due to the P ort-A-Cath, but knew he will be continued on anticoagulation once that catheter is placed. Once again, thank you very much for the opportunity of participating in the medical care of this nhi y interesting and pleasant patient. I will be happy to follow this patient with you and assist in h is hematologic and oncologic evaluation and followup as necessary. Dictated By: STEVENSON ROCHA MD SR/NTS Conf#: [id number] DID#: [id number] CC: MEHDI SIERRA MD; CEFERINO ABREU MD;*EndCC*
[2017-01-26] MEDS: DOXAZOSIN 4 MG TAB PO SCH (21:18)
--- NOTE | 2017-01-27 00:24 | HP ---
DATE OF ADMISSION: 01/25/2017 HISTORY OF PRESENT ILLNESS: Mr. Ibarra is a 71-year-old male who was seen at the [facility] by Dr. Gregory Tamez. He has a history of left lower extremity issues and th e opinion was that he had developed a new cellulitis. Because of this, he was sent to the emergency room to be admitted. He has a recent medical history that is somewhat challenging. He has recentl y been diagnosed as having mass lesions in the spine with extension into the sacral spinal canal cau sing spinal stenosis with symptoms. Ultimately, this was diagnosed by excisional biopsy as a follic ular B-cell non-Hodgkin lymphoma grade II to grade III. He had a PICC line placed in the left arm, but unfortunately developed left upper venous system DVT in the left subclavian, axillary, brachial, and basilic veins. Because of this, he is going to be on lifelong anticoagulation therapy. He is also going to need a port. PAST MEDICAL HISTORY: 1. BPH with obstruction. 2. Organic heart disease -- atrial fibrillation. 3. B cell non-Hodgkin follicular lymphoma. 4. Essential hypertension. 5. Chronic constipation. 6. Spinal stenosis. 7. Left lower extremity chronic venous insufficiency. 8. Obstructive sleep apnea. 9. Osteoarthrosis/DJD. 10. History of pulmonary embolism. 11. Status post lumbar laminectomy. 12. Status post biopsy. 13. Arthroscopy. 14. Status post tonsillectomy. 15. Status post hemorrhoidectomy. 16. Residual hemorrhoids. 17. Status post CE and IOL, both eyes. 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 19. History of carpal tunnel syndrome. 20. Usual childhood diseases. 21. History of varicella. ALLERGIES: 1. HE IS POSSIBLY ALLERGIC TO IODINE. 2. HE IS INTOLERANT OF CIPRO. 3. CODEINE. HABITS: He is a nonsmoker now. Denies alcohol and recreational drugs. SOCIAL HISTORY: He was born in [place], [place], raised there. 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 FAMILY HISTORY: Positive for hypercoagulable state, positive for prostate cancer, positive for late onset coronary artery disease. MEDICATIONS: Please see medication reconciliation form. PHYSICAL EXAMINATION: GENERAL: At time of physical exam, he is a pleasant male who is ambulating in the room. VITAL SIGNS: He has a T-max of 99.8, currently 98.2, pulse 80, respirations 18, blood pressure is 1 53/85. Pulse oximetry is 94% on room air. HEENT: NC/AT. PERRL, EOMI, anicteric, fundi are without note. Tympanic membranes are without note . Oropharynx demonstrates no lesions. NECK: Supple. There is a midline trachea. There is no thyromegaly. Pulses are 2+ without audible bruits. RESPIRATORY: Clear to auscultation and percussion. CARDIAC: Demonstrates no JVD. Irregularly irregular rhythm without rubs, murmurs, or gallops. The left arm is somewhat swollen compared to the right arm with no palpable cord or Homans. ABDOMEN: Soft, nontender, active bowel sounds. No hepatosplenomegaly, no CVA tenderness, no hernia s. EXTREMITIES: Demonstrate bilateral lower extremity chronic venous stasis changes and there is possi aimee evidence in the left lower extremity of cellulitis. ASSESSMENT AND PLAN: 1. Possible left lower extremity cellulitis. He has been seen at the [facility] by Dr. Tamez who recomme nded admission. Please see Dr. Tamez's notes when they become available. He was admitted through the emergency room. Regrettably, they did not bother to do blood cultures on this patient before gi ving him antibiotics intravenously. I will go ahead and try and do the cultures, but they may have burned our bridges for us. In the meantime, we will follow him along clinically. 2. Non-Hodgkin lymphoma. He is going to need access and he will need to be on lifelong anticoagula tion due to recurrent deep vein thromboses, pulmonary emboli, etc. I will have vascular surgery see him to put in the chest wall Port-A-Cath, so will have that available for treatment of his lymphoma and other issues. I have discussed this with Dr. Rocha. 3. Hypertension. I will adjust his medications. We will use alpha blockade as our primary therapy here given his benign prostatic hypertrophy symptoms. 4. History of hemorrhoids. This is noted. Please note in the consultation from the colorectal radha geon, they had said that he had melanoma, which is not correct. He has lymphoma. ADDENDUM: One additional item. Please note this patient had pneumococcal vaccine in 05/2009, tetan us vaccine 10/2009, shingles vaccine 04/2011. In addition, the patient has a DPOA, which is his sis ter. HE IS ALSO REPORTEDLY INTOLERANT OF JACKELINE INHIBITORS AND ARBS. Dictated By: ROBERTH GAN MD, JR/SHREE Conf#: [id number] DID#: [id number] CC: EMILE HEAD MD; GREGORY TAMEZ DPM; STEVENSON ROCHA MD; PEREZ RUSSO MD;*EndCC*
[2017-01-27] MEDS: HEPARIN 5,000 UNIT/0.5 ML VIAL SC SCH ×3 (04:32→21:51)
[2017-01-27] MEDS: FUROSEMIDE 40 MG TAB PO SCH ×2 (05:27→18:03)
[2017-01-27 07:57] VITALS: BP 153/88; RESP 18
[2017-01-27] MEDS: POTASSIUM CHLORIDE (SR) 8 MEQ CAP PO SCH ×2 (08:47→20:32)
[2017-01-27] MEDS: CHOLECALCIFEROL 1,000 UNIT TAB PO SCH (08:47)
[2017-01-27] MEDS: ALLOPURINOL 300 MG TAB PO SCH (08:47)
[2017-01-27] MEDS: FAMOTIDINE 20 MG TAB PO SCH ×2 (08:47→20:34)
--- NOTE | 2017-01-27 09:14 | PN ---
DATE: 01/27/2017 HEMATOLOGY AND ONCOLOGY PROGRESS NOTE SUBJECTIVE: The patient is anxious about having a port put in. He is also somewhat disappointed th at it cannot be put in at the present time. There is, of course, concern that placement of a port w hile the patient has active infection will lead to get infected foreign body. The patient has had no increase in pain in the left lower extremity. There has been no shaking chil ls. OBJECTIVE: VITAL SIGNS: Temperature 97.5, pulse 90 per minute and regular, respirations 18, blood pressure 153 /88, pulse oximetry 95% on room air. SKIN: No ecchymosis, no petechiae, or rashes. There is erythema noted in the left pretibial area a nd bilateral stasis changes in the lower extremities. HEENT: No mucosal lesions. No scleral icterus. NECK: Supple, no jugular venous distention or thyroid enlargement. CHEST: Clear to auscultation and percussion. No rhonchi, wheezes, rales, or rubs. NODES: No palpable lymphadenopathy in lymph node-bearing area. HEART: Regular sinus rhythm, no S3, S4 or murmurs. ABDOMEN: Soft, no masses, no ascites, but obese. There is no rebound tenderness. EXTREMITIES: No clubbing or cyanosis. There is 2 to 3+ edema on the left lower extremity inferior to the knee. There is 1 to 2+ on the right. The left pretibial area is erythematous and warm to th e touch. There are no palpable cords noted. NEUROLOGIC: Normal. LABORATORY: No new laboratory this morning. IMPRESSION: 1. Non-Hodgkin's lymphoma, follicular B-cell type. 2. Cellulitis of left lower extremity. I would agree that the patient should not have placement of a Port-A-Cath until there has been adequ ate treatment of the patient's cellulitis. The patient will need some type of venous access in order for him to receive the appropriate antibio tic therapy. I am concerned about placement of another PICC line which in the past led immediately to a phlebitis and deep vein thrombosis. Would feel more comfortable with an internal jugular line because of the increase of blood flow. Certainly, however, would like to limit the invasive procedures. This patient has been on warfarin. Last dose was on January 25. Is now on heparin. Will check the p rotime and INR; however, this may be influenced by the heparin therapy. Dictated By: STEVENSON ROCHA MD, SR/SHREE Conf#: [id number] DID#: [id number]
[2017-01-27] MEDS ORDERED: MAGNESIUM CHLORIDE (SR) 64 MG TAB PO SCH (10:30)
[2017-01-27] MEDS: VANCOMYCIN 1 GM in NS 250 ML IVPB SCH ×2 (11:39)
[2017-01-27] MEDS: TRIMETHOPRIM/SULFAMETHOX (DS) TAB PO SCH ×2 (14:20→20:34)
--- NOTE | 2017-01-27 14:44 | CONS ---
DATE OF ADMISSION: 01/25/2017 DATE OF CONSULTATION: 01/27/2017 TYPE OF CONSULTATION: Vascular surgery consultation. Dear Doctors: Mr. Ibarra is a 71-year-old gentleman with recent history of non-Hodgkin's lymphoma for which he has been seen by Dr. Armas for his chemo and management. At the moment, the patient has undergone a biopsy that demonstrated follicular B-cell non-Hodgkin's lymphoma, grade II/III, and the PET scan that was done at [facility] demonstrated hypermetabolic lesions corresponding to findings that we re on MRI. The patient also has had multiple enlarged hypermetabolic inguinal nodes and a focal upt declan in the spleen. Of note, the patient had been started on chemotherapy with a combination of shiv ximab and bendamustine and had received his first course of chemotherapy on 11/03/2016. The patient has received a total of 4 cycles and currently has been placed on hold as he has recurrent bilatera l lower extremity cellulitis. The patient has had a longstanding history of venous insufficiency ov er the past 10 years and has developed a new left lower extremity cellulitis for which he has been a dmitted to the hospital for IV antibiotics. The patient has a very difficult IV access, and multipl e attempts had been made in the past in order to obtain an IV line and be able to provide the patien t IV antibiotics. Vascular surgery consultation was obtained for further evaluation as the patient is a difficult access. Upon our discussion with the patient, it seems that he has had a history of hypercoagulable state fo r which he had presented with bilateral lower extremity DVTs in the past. He mentioned that in the right lower extremity he had first presented in 1998 and he was started on Coumadin at which time he was treated for it. Subsequently, he developed a left lower extremity deep venous thrombosis, and ever since, the patient's left lower extremity has always been more edematous than the right and has developed venous stasis ulcers that have healed now and significant lipodermatosclerosis. [facility], the patient does have pain in the left lower extremity with discomfort and redness. The patrice ent also had mentioned that he has had complications as a result of taking Cipro antibiotics for a p rolonged period of time in which he had ligament and tendon tears. Also, the patient mentioned that his mother had some sort of hypercoagulable events. He is not sure as the characterization of it. Further, the patient's sister has had history of miscarriages, and she had also undergone evaluatio n of thrombotic syndrome. As of recent, the patient had developed a left arm DVT in October 2016 w here he had a left upper extremity PICC line placed for his chemo management of his lymphoma. Soon after, the patient had the PICC line removed and is worried about having another PICC line as he had significant swelling and discomfort of the left upper extremity. At the moment, he denies shortnes s of breath, chest pain, nausea, vomiting, fever, or chills. REVIEW OF SYSTEMS: A 12-point review performed and negative except what is mentioned in the HPI. PAST MEDICAL HISTORY: Entails 1. Hypercoagulable state. 2. Bilateral lower extremity DVTs, treated with Coumadin. 3. Bilateral lower extremity venous insufficiency and venous stasis ulcers. 4. Morbidly obese. 5. Lower extremity tendon tears. 6. B-cell non-Hodgkin's lymphoma, grade II/III. 7. BPH with obstruction. 8. Atrial fibrillation. 9. Hypertension. 10. Chronic constipation. 11. Spinal stenosis. 12. Obstructive sleep apnea. 13. Osteoarthritis. 14. Pulmonary embolism. 15. Cataract. 16. Medication induced torticollis. 17. Carpal tunnel syndrome. 18. History of varicella. SURGICAL HISTORY: Entails 1. Lumbar laminectomy. 2. Bone biopsy. 3. Tonsillectomy. 4. Hemorrhoidectomy with residual hemorrhoids. ALLERGIES: 1. IODINE. 2. CIPRO. 3. CODEINE. SOCIAL HISTORY: Denies current smoking of tobacco, alcohol, or illicit drug use. FAMILY HISTORY: Positive for hypercoagulable state most prevalent with his mom and his sister; lianne hankins, it has not been able to be characterized. He has mentioned he has undergone a hypercoagulable workup, although no finding was identified yet. PHYSICAL EXAMINATION: GENERAL: Alert and oriented x3, no apparent distress. HEENT: Normocephalic, atraumatic. EOMI, PERRLA. Mucosa moist. NECK: Supple. No carotid bruit. PULMONARY: Clear to auscultation bilaterally. No crackles. CARDIOVASCULAR: S1, S2 present. No murmurs. ABDOMEN: Soft, nontender, nondistended. Bowel sounds positive. Truncal obesity. RIGHT LOWER EXTREMITY: Palpable femoral pulse, nonpalpable pedal pulse secondary to edema. Motor, sensory intact. Cap refill 2 to 3 seconds. Presence of lipodermatosclerosis. Large leg. Presence of spider veins, telangiectasias, and varicose veins. LEFT LOWER EXTREMITY: Palpable femoral pulse, nonpalpable pedal pulse secondary to edema. Motor, s ensory intact. Cap refill 2 to 3 seconds. Presence of lipodermatosclerosis, spider veins, telangie ctasias, and varicose veins. Extensive area of lipodermatosclerosis with the previous healed ulcer. ASSESSMENT AND PLAN: 1. Bilateral lower extremity deep vein thrombosis: It seems the patient has had a history of hyper coagulable state, although it has not been characterized, and based on his history, it seems it may have been unprovoked. The patient has undergone hypercoagulable workup with his interactive project manager and on cologist, Dr. Armas, and it seems unfortunately it has not been characterized, although he does caldwell ve the characteristics of hypercoagulable state. Further, the patient has a positive family history in which he will likely require lifelong anticoagulation. 2. Bilateral lower extremity venous insufficiency and healed venous stasis ulcer (CEAP classificati on 5): It seems the patient has had longstanding history of post-thrombotic syndrome and venous ins ufficiency. At the moment, would recommend for the patient's current cellulitis to resolve prior to reapplying either 2-layer to 3-layer compression therapy or compression stockings. 3. Left lower extremity cellulitis: It seems the patient has developed significant cellulitis of h is left lower extremity, and with having a difficult IV access, it has limited our options for PICC line based on his previous history and placing a MediPort for him in order for him to receive chemot herapy. I would recommend holding off on the MediPort until his cellulitis has resolved and for the patient to be started on p.o. antibiotics if it is a possibility. Would recommend starting Bactrim -DS 1 tab p.o. b.i.d. with following his renal function closely. We will plan to discharge the patrice ent home once the patient has been started on antibiotics and is tolerating it well and arrange for an eventual MediPort placement about 1 to 2 weeks from now once his cellulitis has resolved. Discussed findings, plan, and management with the patient, and he understands. I have spoken with Dr. Armas who is also in agreement with our management for now. Optimize vascular status (BP meds, diet, nutrition, exercise, sugar control, antiplatelet). Thank you for allowing us to partake in the care of your patient. Please call with any questions. Dictated By: EMILE KATZ/SHREE Conf#: [id number] DID#: [id number]
--- NOTE | 2017-01-27 17:57 | PN ---
Date/Time of Note Date/Time of Note DATE: 01/27/17 TIME: 17:53 Assessment/Plan VTE Prophylaxis VTE Prophylaxis Intervention: heparin Lines/Catheters Urinary Cath still in place: No Subjective 24 Hr Interval Summary Free Text/Dictation he was admitted w dx cellulitis left lower leg. he has a background dof venous stasis and frequent flares. he has lymphoma on chemo with recission he has a hx of dpoe and last picc got clotted and ivs are difficult. at this point it is more than safe to treat with po bactrim and follow clinically and protimes he is ambulatory and afebrile vs ok lungs clear, hr ok left leg with erythema at ankle medially and djust above without leading edges or lymphangitis, chr edema Exam/Review of Systems Vital Signs Vitals Vital Signs Date Time Temp Pulse Resp B/P Pulse Ox O2 Delivery O2 Flow Rate FiO2 01/27/17 07:57 97.5 89 18 153/88 95 Intake and Output 01/26/17 01/26/17 01/27/17 15:00 23:00 07:00 Intake Total 1120 ml 400 ml Balance 1120 ml 400 ml Results Result Diagram: 01/26/17 0440 01/26/17 0440 Medications Medications Current Medications Ondansetron HCl (Zofran Tab) 4 mg Q6H PRN PO NAUSEA AND/OR VOMITING; Start at 00:00 Acetaminophen (Tylenol Tab) 650 mg Q6H PRN PO PAIN LEVEL 1-3 OR FEVER; Start at 00:00 Docusate Sodium (Colace) 100 mg Q12H PRN PO CONSTIPATION; Start 01/26/17 at 00: 00 Zolpidem Tartrate (Ambien) 5 mg QHS PRN PO SLEEP; Start 01/26/17 at 00:00 Famotidine (Pepcid) 20 mg Q12 PO Last administered on 01/27/17 08:47; Admin Dose 20 MG; Start 01/26/17 at 09:00 Heparin Sodium (Porcine) (Heparin (5000 Units/0.5 ml)) 5,000 unit Q8 SC Last administered on 01/27/17 14:22; Admin Dose 5,000 UNIT; Start 01/26/17 at 06:00 Allopurinol (Zyloprim) 300 mg DAILY PO Last administered on 01/27/17 08:47; Admin Dose 300 MG; Start 01/26/17 at 09:00 Alprazolam (Xanax) 0.5 mg Q8H PRN PO ANXIETY; Start 01/26/17 at 00:00 Cholecalciferol (Vitamin D) 1,000 unit DAILY PO Last administered on 01/27/17 08:47; Admin Dose 1,000 UNIT; Start 01/26/17 at 09:00 Furosemide (Lasix) 40 mg DAILY@06 PO ; Start 01/26/17 at 06:00 Potassium Chloride (Micro-K) 8 meq BID PO Last administered on 01/27/17 08:47 ; Admin Dose 8 MEQ; Start 01/26/17 at 09:00 Doxazosin Mesylate 4 mg 4 mg HS PO Last administered on 01/26/17 21:18; Admin Dose 4 MG; Start 01/26/17 at 21:00 Vancomycin HCl (Vancocin) 250 ml @ 125 mls/hr Q12H IVPB Last administered on 01:00; Admin Dose 125 MLS/HR; Start 01/26/17 at 00:00 Magnesium Chloride (Mag 64) 128 mg ONCE PO Last administered on 01/27/17 10:40 ; Admin Dose 128 MG; Start 01/27/17 at 10:30; Stop 01/27/17 at 23:00 Magnesium Chloride (Mag 64) 128 mg DAILY PO ; Start 01/28/17 at 09:00 Trimethoprim/ Sulfamethoxazole (Bactrim (Ds)) 1 tab BID PO Last administered on 01/27/17 14:20; Admin Dose 1 TAB; Start 01/27/17 at 14:00 REY WALLACE MD January 27, 2017 17:57
[2017-01-27 20:07] VITALS: BP 156/84; RESP 19
[2017-01-27] MEDS: DOXAZOSIN 4 MG TAB PO SCH (20:36)
[2017-01-28 05:06] LABS: ADD SCAN DIFF NO
[2017-01-28 05:13] LABS: ABNORMAL IP MESSAGE 1; BASOPHILS % 0.5 % (0.0-2.0); EOSINOPHILS # 0.3 10^3/ul (0.0-0.5); HEMATOCRIT 44.8 % (42.0-52.0); LYMPHOCYTES # 0.2 10^3/ul (0.8-2.9); LYMPHOCYTES % 3.6 % (15.0-51.0); MEAN CORPUSCULAR HEMOGLOBIN 30.8 pg (29.0-33.0); MEAN CORPUSCULAR HGB CONC 33.5 g/dl (32.0-37.0); MEAN PLATELET VOLUME 10.4 fl (7.4-10.4); MONOCYTE # 1.1 10^3/ul (0.3-0.9); MONOCYTES % 18.1 % (0.0-11.0); NEUTROPHIL # 4.2 10^3/ul (1.6-7.5); NEUTROPHILS % 72.3 % (39.0-77.0); RED BLOOD COUNT 4.87 10^6/ul (4.70-6.10); RED CELL DISTRIBUTION WIDTH 15.3 % (11.5-14.5); WHITE BLOOD COUNT 5.8 10^3/ul (4.8-10.8)
[2017-01-28 05:30] LABS: PLATELET COUNT 127 10^3/UL (140-415)
[2017-01-28] MEDS: HEPARIN 5,000 UNIT/0.5 ML VIAL SC SCH ×2 (05:30→14:19)
[2017-01-28] MEDS: FUROSEMIDE 40 MG TAB PO SCH (05:31)
[2017-01-28 05:39] LABS: INR 1.42; PROTIME 17.4 Sec (12.2-14.2); PT RATIO 1.4
[2017-01-28 07:35] VITALS: BP 141/81; PULSE 81; RESP 19
[2017-01-28 07:51] VITALS: BP 175/86; RESP 18
[2017-01-28] MEDS ORDERED: MAGNESIUM CHLORIDE (SR) 64 MG TAB PO SCH (09:00)
[2017-01-28] MEDS: ALLOPURINOL 300 MG TAB PO SCH (09:07)
[2017-01-28] MEDS: CHOLECALCIFEROL 1,000 UNIT TAB PO SCH (09:07)
[2017-01-28] MEDS: POTASSIUM CHLORIDE (SR) 8 MEQ CAP PO SCH (09:07)
[2017-01-28] MEDS: TRIMETHOPRIM/SULFAMETHOX (DS) TAB PO SCH ×2 (09:07→19:39)
[2017-01-28] MEDS: FAMOTIDINE 20 MG TAB PO SCH (09:07)
[2017-01-28 09:10] VITALS: BP 133/66; PULSE 80
--- NOTE | 2017-01-28 11:50 | PN ---
Date/Time of Note Date/Time of Note DATE: 01/28/17 TIME: 11:48 Assessment/Plan VTE Prophylaxis VTE Prophylaxis Intervention: ambulation Lines/Catheters Urinary Cath still in place: No Assessment/Plan Assessment/Plan Pt is doing better and cellulitis is resolving. He may be discharged soon. If so, I asked him to talk to Dr. Armas about what day he would like to see the patient. A venous access catheter will be needed but not until the infection has fully cleared. Subjective 24 Hr Interval Summary Free Text/Dictation Pt is up and walking in the room. He expects to go home on oral antibiotic soon. Exam/Review of Systems Vital Signs Vitals Vital Signs Date Time Temp Pulse Resp B/P Pulse Ox O2 Delivery O2 Flow Rate FiO2 01/28/17 09:10 80 133/66 01/28/17 07:51 98.0 18 98 Intake and Output 01/27/17 01/27/17 01/28/17 15:00 23:00 07:00 Intake Total 760 ml 820 ml Balance 760 ml 820 ml Exam Constitutional: alert, oriented Head: normocephalic Eyes: nl conjunctiva Neck: supple Respiratory: clear to auscultation Cardiovascular: regular rate and rhythm Skin: other (left leg area wrapped in gauze.) Results Result Diagram: 01/28/17 0453 01/26/17 0440 Results 24 hrs Laboratory Tests Test 01/28/17 04:53 White Blood Count 5.8 # Red Blood Count 4.87 Hemoglobin 15.0 Hematocrit 44.8 Mean Corpuscular Volume 92.0 Mean Corpuscular Hemoglobin 30.8 Mean Corpuscular Hemoglobin Concent 33.5 Red Cell Distribution Width 15.3 H Platelet Count 127 L Mean Platelet Volume 10.4 Neutrophils % 72.3 Lymphocytes % 3.6 L Monocytes % 18.1 H Eosinophils % 5.0 Basophils % 0.5 Nucleated Red Blood Cells % 0.0 Neutrophils # 4.2 Lymphocytes # 0.2 L Monocytes # 1.1 H Eosinophils # 0.3 Basophils # 0.0 Nucleated Red Blood Cells # 0.0 Prothrombin Time 17.4 #H Prothrombin Time Ratio 1.4 INR International Normalized Ratio 1.42 Medications Medications Current Medications Ondansetron HCl (Zofran Tab) 4 mg Q6H PRN PO NAUSEA AND/OR VOMITING; Start at 00:00 Acetaminophen (Tylenol Tab) 650 mg Q6H PRN PO PAIN LEVEL 1-3 OR FEVER; Start at 00:00 Docusate Sodium (Colace) 100 mg Q12H PRN PO CONSTIPATION; Start 01/26/17 at 00: 00 Zolpidem Tartrate (Ambien) 5 mg QHS PRN PO SLEEP; Start 01/26/17 at 00:00 Famotidine (Pepcid) 20 mg Q12 PO Last administered on 01/28/17 09:07; Admin Dose 20 MG; Start 01/26/17 at 09:00 Heparin Sodium (Porcine) (Heparin (5000 Units/0.5 ml)) 5,000 unit Q8 SC Last administered on 01/28/17 05:30; Admin Dose 5,000 UNIT; Start 01/26/17 at 06:00 Allopurinol (Zyloprim) 300 mg DAILY PO Last administered on 01/28/17 09:07; Admin Dose 300 MG; Start 01/26/17 at 09:00 Alprazolam (Xanax) 0.5 mg Q8H PRN PO ANXIETY; Start 01/26/17 at 00:00 Cholecalciferol (Vitamin D) 1,000 unit DAILY PO Last administered on 01/28/17 09:07; Admin Dose 1,000 UNIT; Start 01/26/17 at 09:00 Furosemide (Lasix) 40 mg DAILY@06 PO Last administered on 01/27/17 18:03; Admin Dose 40 MG; Start 01/26/17 at 06:00 Potassium Chloride (Micro-K) 8 meq BID PO Last administered on 01/28/17 09:07 ; Admin Dose 8 MEQ; Start 01/26/17 at 09:00 Doxazosin Mesylate (Cardura) 4 mg HS PO Last administered on 01/27/17 20:36; Admin Dose 4 MG; Start 01/26/17 at 21:00 Magnesium Chloride (Mag 64) 128 mg DAILY PO Last administered on 01/28/17 09: 07; Admin Dose 128 MG; Start 01/28/17 at 09:00 Trimethoprim/ Sulfamethoxazole (Bactrim (Ds)) 1 tab BID PO Last administered on 01/28/17 09:07; Admin Dose 1 TAB; Start 01/27/17 at 14:00 JONATHON BOGGS MD January 28, 2017 11:50
--- NOTE | 2017-01-28 18:03 | PDOCDIS ---
Discharge Instructions DIAGNOSIS Discharge Diagnosis: Left lower extremity cellulitis; non-Hodgkin's lymphoma; BPH CONDITION Patient Condition: Good HOME CARE INSTRUCTIONS: Special Diet: carb control ACTIVITY: Activity Restrictions: Slowly Increase Activity Do not operate Machinery Do not operate Power Tool Keep Limb Elevated FOLLOW UP/APPOINTMENTS Appointments Dr. Armas in 2 weeks; Dr. Moss in 1 week ROBERTH GAN MD January 28, 2017 18:03
[2017-01-28] MEDS ORDERED: Trimethoprim/Sulfamethox (Ds) PO (18:04)
--- NOTE | 2017-01-28 18:07 | DS ---
Date/Time of Note Date/Time of Note DATE: 01/28/17 TIME: 18:05 Discharge Summary Admission/Discharge Info Admit Date/Time January 25, 2017 at 21:30 Discharge Date/Time 01/28/2017 Final Diagnosis Left lower extremity cellulitis; chronic venous stasis; BPH; hypertension; non- Hodgkin's lymphoma; Patient Condition: Good Consults Vascular surgery; oncology Procedures Lower extremity venous study Hx of Present Illness Mr. Ibarra is a 71-year-old male who was seen at the [facility] by Dr. Gregory Moss. He has a history of left lower extremity issues and the opinion was that he had developed a new cellulitis. Because of this, he was sent to the emergency room to be admitted. He has a recent medical history that is somewhat challenging. He has recently been diagnosed as having mass lesions in the spine with extension into the sacral spinal canal causing spinal stenosis with symptoms. 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 He had a PICC line placed in the left arm, but unfortunately developed left upper venous system DVT in the left subclavian, axillary, brachial, and basilic veins. Because of this, he is going to be on lifelong anticoagulation therapy. He is also going to need a port. PAST MEDICAL HISTORY: 1. BPH with obstruction. 2. Organic heart disease -- atrial fibrillation. 3. B cell non-Hodgkin follicular lymphoma. 4. Essential hypertension. 5. Chronic constipation. 6. Spinal stenosis. 7. Left lower extremity chronic venous insufficiency. 8. Obstructive sleep apnea. 9. Osteoarthrosis/DJD. 10. History of pulmonary embolism. 11. Status post lumbar laminectomy. 12. Status post biopsy. 13. Arthroscopy. 14. Status post tonsillectomy. 15. Status post hemorrhoidectomy. 16. Residual hemorrhoids. 17. Status post CE and IOL, both eyes. 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 19. History of carpal tunnel syndrome. 20. Usual childhood diseases. 21. History of varicella. Hospital Course 71-year-old male admitted with lower extremity redness erythema and warmth which was read out as cellulitis. He was treated with IV antibiotics and then switched over to oral Bactrim with successful treatment. He is now being discharged home in improved condition. Please note is going to need a Port-A-Cath placement for ongoing chemotherapy for the non-Hodgkin's lymphoma. This is on hold temporarily while he is being treated for cellulitis. Once her cellulitis has been successfully treated and he will have his Port-A-Cath. Please note he has had multiple DVTs and PEs and as such is considered a hypercoagulable risk patient and will be long-term anticoagulated. Is now discharged home in improved condition he has no known communicable diseases he is not hazard to himself or others his rehabilitation potential is good Home Meds Reported Medications Cholecalciferol* (Vitamin D3*) 1,000 Unit Tablet, 1000 UNIT PO DAILY, TAB 01/25/17 Docusate Sodium* (Colace*) 100 Mg Capsule, 100 MG PO DAILY, #30 CAP 01/25/17 Doxazosin Mesylate* (Doxazosin Mesylate*) 4 Mg Tablet, 2 MG PO BID WITH MEALS, TAB 01/25/17 Alprazolam* (Alprazolam*) 0.5 Mg Tablet, 0.5 MG PO Q8H Y for ANXIETY, TAB 01/25/17 Allopurinol* (Allopurinol*) 300 Mg Tablet, 300 MG PO DAILY, TAB 01/25/17 Potassium Chloride* (Klor-Con*) 8 Meq Tablet.sa, 8 MEQ PO BID, TAB 01/25/17 Furosemide* (Furosemide*) 40 Mg Tablet, 40 MG PO EVERY OTHER DAY, TAB PATIENT IS TAKING THIS EVERY OTHER DAY 01/25/17 Warfarin Sodium* (Coumadin*) 5 Mg Tablet, 5 MG PO, TAB PATIENT SAID HE IS TAKING 5MG EVERY SUN-WED-WED; WED - 2.5MG 01/25/17 Discontinued Reported Medications [Coumadin] No Conflict Check 02/11/14 [Lasix] No Conflict Check 02/11/14 Primary Care Provider Mehdi Sierra MD Time spent on discharge: > 30 minutes Pending Labs Laboratory Tests Test 01/28/17 04:53 White Blood Count 5.810^3/ul (4.8-10.8) Red Blood Count 4.8710^6/ul (4.70-6.10) Hemoglobin 15.0g/dl (14.0-18.0) Hematocrit 44.8% (42.0-52.0) Mean Corpuscular Volume 92.0fl (82.0-101.0) Mean Corpuscular Hemoglobin 30.8pg (29.0-33.0) Mean Corpuscular Hemoglobin Concent 33.5g/dl (32.0-37.0) Red Cell Distribution Width 15.3% (11.5-14.5) Platelet Count 76412^3/UL (140-415) Mean Platelet Volume 10.4fl (7.4-10.4) Neutrophils % 72.3% (39.0-77.0) Lymphocytes % 3.6% (15.0-51.0) Monocytes % 18.1% (0.0-11.0) Eosinophils % 5.0% (0.0-7.0) Basophils % 0.5% (0.0-2.0) Nucleated Red Blood Cells % 0.0/100WBC (0.0-0.0) Neutrophils # 4.210^3/ul (1.6-7.5) Lymphocytes # 0.210^3/ul (0.8-2.9) Monocytes # 1.110^3/ul (0.3-0.9) Eosinophils # 0.310^3/ul (0.0-0.5) Basophils # 0.010^3/ul (0.0-0.1) Nucleated Red Blood Cells # 0.010^3/ul (0.0-0.0) Prothrombin Time 17.4Sec (12.2-14.2) Prothrombin Time Ratio 1.4 INR International Normalized Ratio 1.42 ROBERTH GAN MD January 28, 2017 18:07
[2017-01-28 19:37] VITALS: BP 125/73; PULSE 85; RESP 18
== END 2017-01-28 19:52 | disposition home or self-care (01) | DRG 603 ==
LOC: E/R 18:57 → PP2 21:30
PROVIDERS: ADMIT Internal Medicine; ATTEND Internal Medicine
DX: L03.116 Cellulitis of left lower limb (principal); C82.28 Follicular lymphoma grade III, unspecified, lymph nodes of multiple sites; Z86.711 Personal history of pulmonary embolism; Z86.718 Personal history of other venous thrombosis and embolism; Z79.01 Long term (current) use of anticoagulants; I87.2 Venous insufficiency (chronic) (peripheral); E66.9 Obesity, unspecified; Z68.37 Body mass index [BMI] 37.0-37.9, adult; I10 Essential (primary) hypertension; N40.0 Benign prostatic hyperplasia without lower urinary tract symptoms; Z84.89 Family history of other specified conditions
CPT/HCPCS: 36415; 71010; 80053; 81001; 81003; 82962; 83690; 84484; 84560; 85025; 85610; 87040; 87086; 93005; 93971; 96374; 96375; J0696; J1644; J3370; J7030

== ENCOUNTER 2017-03-18 01:27 | Emergency (ER) | payer MEDICARE, OTHER ==
[~2017-03-18] VITALS: Ht 170.2 cm; Wt 108.0 kg
[~2017-03-18 01:27] MED LIST changes: +ALLO300T2 PO; +ALPR0.5T6 PO; +CHOL100062 PO; -COUMADIN; +DOCU-144 PO; +DOXA4TAB3 PO; +FURO40TA4 PO; -LASIX; +POTA8TAB2 PO; +Trimethoprim/Sulfamethox (Ds) PO; +WARF5TAB72 PO
[2017-03-18 01:41] VITALS: Ht 170.2 cm; Wt 108.0 kg
[2017-03-18 05:05] VITALS: BP 159/95; PULSE 86; RESP 18
--- NOTE | 2017-03-18 05:25 | ERD ---
ER Documentation Chief Complaint Date/Time DATE: 03/18/17 TIME: 05:03 Chief Complaint bleeding from portocath x2 hours [employer] HPI 71-year-old male with a history of lymphoma on chemotherapy with a relatively new port in his right chest presenting with bleeding from his Port-A-Cath site. His port was accessed yesterday for chemo. His nurse left the access needle in as he was to have chemo this morning as well. However when the patient took off his shirt last night to go to bed, he noticed there was blood coming out of his port site. He also had some associated pain. He came in for evaluation. He denies any dizziness, fevers, chills. He is on blood thinners for history of clots. ROS All systems reviewed and are negative except as per history of present illness. Medications Home Meds Reported Medications Cholecalciferol* (Vitamin D3*) 1,000 Unit Tablet, 1000 UNIT PO DAILY, TAB 01/25/17 Docusate Sodium* (Colace*) 100 Mg Capsule, 100 MG PO DAILY, #30 CAP 01/25/17 Doxazosin Mesylate* (Doxazosin Mesylate*) 4 Mg Tablet, 2 MG PO BID WITH MEALS, TAB 01/25/17 Alprazolam* (Alprazolam*) 0.5 Mg Tablet, 0.5 MG PO Q8H Y for ANXIETY, TAB 01/25/17 Allopurinol* (Allopurinol*) 300 Mg Tablet, 300 MG PO DAILY, TAB 01/25/17 Potassium Chloride* (Klor-Con*) 8 Meq Tablet.sa, 8 MEQ PO BID, TAB 01/25/17 Furosemide* (Furosemide*) 40 Mg Tablet, 40 MG PO EVERY OTHER DAY, TAB PATIENT IS TAKING THIS EVERY OTHER DAY 01/25/17 Warfarin Sodium* (Coumadin*) 5 Mg Tablet, 5 MG PO, TAB PATIENT SAID HE IS TAKING 5MG EVERY SUN-WED-WED; WED - 2.5MG 01/25/17 Discontinued Scripts [Trimethoprim/Sulfamethox (Ds)] 1 TAB TAB No Conflict Check, 1 TAB PO BID for 10 Days Prov:ROBERTH GAN MD 01/28/17 Allergies Allergies: Coded Allergies: iodine (Unverified Allergy, Severe, VOMIT AND TURNS GREEN, 03/18/17) ciprofloxacin (Unverified Adverse Reaction, Severe, RUINED LEG LIGAMENTS, 03/18/17) PMhx/Soc History of Surgery: Yes (back sx L4-L5, Left partial knee sx, hemorrhoid sx) Anesthesia Reaction: No Hx Neurological Disorder: No Hx Respiratory Disorders: No Hx Cardiac Disorders: Yes (AFIB, Pulmonary embolism,DVT) Hx Psychiatric Problems: No Hx Alcohol Use: No Hx Substance Use: No Hx Tobacco Use: No Smoking Status: Never smoker FmHx Family History: No diabetes Physical Exam Vitals Vital Signs Date Time Temp Pulse Resp B/P Pulse Ox O2 Delivery O2 Flow Rate FiO2 03/18/17 05:04 88 18 159/105 97 Room Air 03/18/17 01:41 98.7 97 18 161/85 98 Physical Exam Const: Well-appearing, no apparent distress, laying comfortably in bed Head: Atraumatic Eyes: Normal Conjunctiva ENT: Normal External Ears, Nose and Mouth. Neck: Full range of motion..~ No meningismus. Chest: Right upper chest with poor and access needle. Overlying gauze soaked with blood, no active bleeding. No surrounding erythema, induration, fluctuance , or purulent drainage. Resp: Clear to auscultation bilaterally Cardio: Regular rate and rhythm, no murmurs Abd: Soft, non tender, non distended. Normal bowel sounds Neur: Awake and alert Psych: Normal Mood and Affect Procedures/MDM Patient is presenting with bleeding from his port access site. He is hemodynamically stable. At this time there is no bleeding. The needle was removed with subsequent oozing from the site. Pressure dressing was placed. There is no evidence of port site infection. Patient was monitored and he had no further bleeding from his site. He was advised to follow-up for chemo as scheduled today. Return precautions were discussed. Patient was discharged in a stable condition. Departure Diagnosis: Primary Impression: Encounter for care related to Port-a-Cath Condition: Stable Patient Instructions: First Aid: Bleeding Additional Instructions: If you notice there is bleeding again, apply pressure. Return to the ER for any worsening symptoms. ROULA VYAS MD Mar 18, 2017 05:16
== END 2017-03-18 05:05 | disposition home or self-care (01) ==
LOC: E/R 01:27
DX: Z45.2 Encounter for adjustment and management of vascular access device (principal); Z79.01 Long term (current) use of anticoagulants
CPT/HCPCS: 99282

== ENCOUNTER → 2017-09-16 | Outpatient (CLI) | END | disposition home or self-care (01) ==